=== PATIENT | male | born 1950 | race Caucasian/White ===

== ENCOUNTER 2020-07-13 17:00 | Inpatient (IN) | payer MEDICARE, BC ==
--- NOTE | 2020-07-13 18:23 | ED ---
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 Patient went into the hospital to get his antibiotics for a urinary tract infection. When the patient showed up the nurse took his blood pressure because he was feeling very lightheaded and weak and thought he might pass out at that point in time his blood pressure was in the 60s edema liter of fluid he started to feel better however they did not feel comfortable keeping the other facility so they sent him down to us per patient states since he's left the facility he's felt considerably better and he no longer feels lightheaded he denies any pain he denies any fever or chills he denies any chest pain palpitations difficulty breathing or shortness of breath. Patient denies any headache patient denies numbness weakness. - Related Data Home Medications Medication Instructions Recorded Confirmed Bisacodyl [Dulcolax] 1 supp PO DIRECTED 09/26/13 09/26/13 Cranberry Conc/C/Bacill Coag 1 tab PO DAILY 09/26/13 09/26/13 [Cranberry Tablet] Multivitamins, Thera [Multivitamin 1 tab PO DAILY 09/26/13 09/26/13 (formulary)] [place]-3 Fatty Acids [Rufe-3] 1,000 mg PO DAILY 09/26/13 09/26/13 Pantoprazole Sodium 40 mg PO DAILY 09/26/13 09/26/13 Ranitidine HCl 150 mg PO BID 09/26/13 09/26/13 Previous Rx's Medication Instructions Recorded Ciprofloxacin HCl [Cipro] 500 mg PO Q12HR #20 tablet 09/29/13 Allergies Allergy/AdvReac Type Severity Reaction Status Date / Time atorvastatin Allergy Unknown Verified 07/13/20 17:27 ceftriaxone Allergy Rash/Hives Verified 07/13/20 17:27 Fish Containing Products Allergy Unknown Verified 07/13/20 17:27 [Fish] rifampin Allergy Unknown Verified 07/13/20 17:27 Review of Systems ROS Statement: Those systems with pertinent positive or pertinent negative responses have been documented in the HPI. ROS Other: All systems not noted in ROS Statement are negative. Past Medical History Past Medical History: Hypertension Additional Past Medical History / Comment(s): autonomic dyfuction, hx uti History of Any Multi-Drug Resistant Organisms: None Reported Past Surgical History: Cholecystectomy Additional Past Surgical History / Comment(s): Spinal cord injury. Past Psychological History: No Psychological Hx Reported Smoking Status: Never smoker Past Alcohol Use History: None Reported Past Drug Use History: None Reported General Exam - General Exam Comments Initial Comments: GENERAL: Patient is well-developed and well-nourished. Patient is nontoxic and well- hydrated and is in no acute distress. ENT: Neck is soft and supple. No significant lymphadenopathy is noted. Oropharynx is clear. Moist mucous membranes. Neck has full range of motion without eliciting any pain. EYES: The sclera were anicteric and conjunctiva were pink and moist. Extraocular movements were intact and pupils were equal round and reactive to light. Eyelids were unremarkable. PULMONARY: Unlabored respirations. Good breath sounds bilaterally. No audible rales rhonchi or wheezing was noted. CARDIOVASCULAR: There is a regular rate and rhythm without any murmurs gallops or rubs. ABDOMEN: Soft and nontender with normal bowel sounds. Patient has a suprapubic catheter in place SKIN: Skin is clear with no lesions or rashes and otherwise unremarkable. NEUROLOGIC: Patient is alert and oriented x3. Cranial nerves II through XII are grossly intact. Patient has no movement of his leg.. Normal speech, volume and content. Symmetrical smile. MUSCULOSKELETAL: Patient has no movement of his legs. LYMPHATICS: No significant lymphadenopathy is noted PSYCHIATRIC: Normal psychiatric evaluation. Limitations: no limitations Course Vital Signs 07/13/20 17:16 Temperature 98.2 F Pulse Rate 92 Respiratory 18 Rate Blood Pressure 174/101 O2 Sat by Pulse 98 Oximetry Medical Decision Making - Medical Decision Making I spoke with Dr. Washburn and he agreed to admit the patient admitted the patient wrote admitting orders. I consulted ID Disposition Clinical Impression: Urinary tract infection, Hypotension Disposition: ADMITTED IP TO THIS HOSP Referrals: Jesse Roberson MD [Primary Care Provider] - 1-2 days Time of Disposition: 18:24
[2020-07-13] MEDS ORDERED: SODIUM CHLORIDE 0.9% 1,000 ML IV ONE (18:25)
[2020-07-13] MEDS: traZODone HCL 50 MG TAB PO SCH (22:39)
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
[2020-07-14 07:18] LABS: HCT 36.5 % (39.0-53.0); HGB 12.3 gm/dL (13.0-17.5); MCH 31.2 pg (25.0-35.0); MCHC 33.7 g/dL (31.0-37.0); MCV 92.4 fL (80.0-100.0); Mean Platelet Volume 6.3; Platelet Count 189 k/uL (150-450); RBC 3.95 m/uL (4.30-5.90); RDW 13.2 % (11.5-15.5); WBC 5.9 k/uL (3.8-10.6)
[2020-07-14] MEDS: MAGNESIUM OXIDE 400 MG TAB PO SCH (08:42)
[2020-07-14] MEDS: BACLOFEN 10 MG TAB PO SCH ×3 (08:42→21:32)
[2020-07-14] MEDS: MULTIVITAMINS, THERA 1 EACH TAB PO SCH (08:42)
[2020-07-14] MEDS: PANTOPRAZOLE 40 MG TABLET PO SCH (08:43)
[2020-07-14] MEDS: ERTAPENEM 1 GM in SODIUM CHLORIDE 0.9% 50 ML IVPB SCH (08:45)
[2020-07-14 09:29] LABS: African American GFR (CKD) 104.2 (60.0-200.0); Anion Gap 9.8 mmol/L (4.00-12.00); Calcium 9.5 mg/dL (8.7-10.3); Carbon Dioxide 24.2 mmol/L (21.6-31.8); Non-African American GFR(CKD) 89.9 (60.0-200.0); Potassium 4.5 mmol/L (3.5-5.5)
[2020-07-14] MEDS ORDERED: hydrALAZINE HCL 20 MG/ML 1 ML VIAL IVP STA (12:06)
[2020-07-14] MEDS: amLODIPine 5 MG TAB PO SCH (12:45)
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
[2020-07-14 14:11] VITALS: BMI 26.6
[2020-07-14] MEDS ORDERED: NON FORMULARY DRUG (Rosuvastatin Calcium [Crestor] 5 MG Tablet) PO SCH (21:00)
[2020-07-14] MEDS: HEPARIN SODIUM,PORCINE 5,000 UNIT/ML 1 ML VIAL SQ SCH (21:32)
[2020-07-14] MEDS: traZODone HCL 50 MG TAB PO SCH (21:32)
[2020-07-14] MEDS ORDERED: hydrALAZINE HCL 25 MG TAB PO STA (21:33)
[2020-07-15 05:45] LABS: Appearance,Urine Clear (Clear); Bilirubin,Urine Negative (Negative); Blood,Urine Small (Negative); Color,Urine Yellow; Glucose,Urine (UA) Negative (Negative); Hyaline Casts,Urine 1 /lpf (0-2); Ketones,Urine Negative (Negative); Leukocyte Esterase,Urine Large (Negative); Mucus,Urine Rare /hpf; Nitrite,Urine Negative (Negative); Protein,Urine Trace (Negative); RBC,Urine 17 /hpf (0-5); Specific Gravity,Urine 1.013 (1.001-1.035); Squamous Epithelial Cell,Urine <1 /hpf (0-4); WBC,Urine 122 /hpf (0-5)
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
[2020-07-15] MEDS: HEPARIN SODIUM,PORCINE 5,000 UNIT/ML 1 ML VIAL SQ SCH (07:30)
[2020-07-15] MEDS: amLODIPine 5 MG TAB PO SCH (07:31)
[2020-07-15] MEDS: PANTOPRAZOLE 40 MG TABLET PO SCH (07:31)
[2020-07-15] MEDS: ERTAPENEM 1 GM in SODIUM CHLORIDE 0.9% 50 ML IVPB SCH (07:31)
[2020-07-15] MEDS: MULTIVITAMINS, THERA 1 EACH TAB PO SCH (07:31)
[2020-07-15] MEDS: MAGNESIUM OXIDE 400 MG TAB PO SCH (07:31)
[2020-07-15] MEDS: BACLOFEN 10 MG TAB PO SCH (07:31)
[2020-07-15 08:14] VITALS: RESP 16; TEMP 98.8
[2020-07-15 08:58] LABS: Basophils # (A) 0.04 X 10*3/uL (0.00-0.10); Basophils % (A) 0.7 %; Eosinophils # (A) 0.41 X 10*3/uL (0.04-0.35); Eosinophils % (A) 7.7 %; HCT 33.3 % (39.6-50.0); HGB 11.2 g/dL (13.0-17.0); Lymphocytes # (A) 0.89 X 10*3/uL (0.90-5.00); Lymphocytes % (A) 16.7 %; MCH 31.5 pg (27.0-32.0); MCHC 33.6 g/dL (32.0-37.0); MCV 93.5 fL (80.0-97.0); Monocytes % (A) 11.2 %; Neutrophils # (A) 3.39 X 10*3/uL (1.80-7.70); Neutrophils % (A) 63.5 %; Platelet Count 175 X 10*3/uL (140-440); RBC 3.56 X 10*6/uL (4.40-5.60); RDW 12.7 % (11.5-14.5); WBC 5.34 X 10*3/uL (4.50-10.00)
[2020-07-15 09:12] LABS: African American GFR (CKD) 104.2 (60.0-200.0); BUN/Creat Ratio 13.75 Ratio (12.00-20.00); C Reactive Protein 0.9 mg/dL (0.0-0.8); Calcium 9.4 mg/dL (8.7-10.3); Non-African American GFR(CKD) 89.9 (60.0-200.0); Potassium 4.2 mmol/L (3.5-5.5)
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
[2020-07-15 12:14] LABS: Erythrocyte Sedimentation Rate 7 mm/Hr (0-20)
[2020-07-15 13:05] VITALS: BP 138/79; PULSE 91
--- NOTE | 2020-07-19 07:52 | CDI ---
Documentation Clarification Form Date: 07/19/20 From: Tonya Samano Phone: Admit Date: 07/14/2020 12:46:00 PM Patient Name: Aníbal Fraga Visit Number: [id number] Discharge Date: 07/15/2020 01:58:00 PM ATTENTION: The Clinical Documentation Specialists (CDI) and [facility] Coding Staff appreciate your assistance in clarifying documentation. Please respond to the clarification below the line at the bottom and electronically sign. The CDI & [facility] Coding staff will review the response and follow-up if needed. Please note: Queries are made part of the Legal Health Record. If you have any questions, please contact the author of this message via ITS. Dr. Pee Starks, The diagnosis Stage II pressure injury of left buttock was documented in the Nursing Wound Assessment, but is not noted in subsequent documentation. History/Risk Factors: paraplegia, autonomic dysfunction, HTN Treatment: Per Wound Assessment - white in color, no dressing at this time, patient turned Q2 and prn Please clarify if the Stage II pressure injury of left buttock: Present/active/treated this admission Ruled out Other, please specify Clinically unable to determine yes present on admission MTDD
== END 2020-07-15 13:58 | disposition home or self-care (01) | DRG 305 ==
LOC: EC 17:00 → 6NMEDSUR 18:25 → 4SSUR 20:20 → OBSVTOIN 07-14 12:46
PROVIDERS: ADMIT Internal Medicine; ATTEND Internal Medicine
DX: I16.0 Hypertensive urgency (principal); T83.510A Infection and inflammatory reaction due to cystostomy catheter, initial encounter; N39.0 Urinary tract infection, site not specified; G82.20 Paraplegia, unspecified; L89.322 Pressure ulcer of left buttock, stage 2; I95.9 Hypotension, unspecified; G90.9 Disorder of the autonomic nervous system, unspecified; I10 Essential (primary) hypertension; E78.5 Hyperlipidemia, unspecified; T14.8XXS Other injury of unspecified body region, sequela; Z79.899 Other long term (current) drug therapy; Y84.6 Urinary catheterization as the cause of abnormal reaction of the patient, or of later complication, without mention of misadventure at the time of the procedure; Z87.440 Personal history of urinary (tract) infections; Z90.49 Acquired absence of other specified parts of digestive tract; Z87.19 Personal history of other diseases of the digestive system; Z98.890 Other specified postprocedural states; Z88.1 Allergy status to other antibiotic agents; Z88.8 Allergy status to other drugs, medicaments and biological substances; Z91.018 Allergy to other foods
CPT/HCPCS: 80048; 81001; 83605; 85025; 85027; 85652; 86140; 87040; 87086; 99285